=== PATIENT | male | born 1940 | race Caucasian/White ===

== ENCOUNTER 2021-04-01 15:47 | Inpatient (IN) | payer MEDICARE ==
[~2021-04-01] VITALS: Ht 175.3 cm; Wt 66.4 kg
[2021-04-01] MEDS ORDERED: ASPI-1450 PO (16:08)
[2021-04-01 16:45] LABS: BASOPHILS % (AUTO) 0.5 % (0.0-2.0); EOSINOPHILS % (AUTO) 0.9 % (1.0-6.0); HEMATOCRIT 40.8 % (41-53); HEMOGLOBIN 13.8 g/dL (13.5-17.5); LYMPHOCYTES # (AUTO) 1.7 K/uL (1.0-4.8); LYMPHOCYTES % (AUTO) 28.6 % (22.0-44.0); MEAN CORPUSCULAR HEMOGLOBIN 30.4 pg (26.0-34.0); MEAN CORPUSCULAR HGB CONC 33.7 G/dL (31.0-37.0); MEAN CORPUSCULAR VOLUME 90 fL (80-100); MONOCYTES # (AUTO) 0.5 K/uL (0.1-1.0); MONOCYTES % (AUTO) 8.8 % (2.0-9.0); NEUTROPHILS # (AUTO) 3.6 K/uL (1.8-7.7); NEUTROPHILS % (AUTO) 61.2 % (40.0-70.0); PLATELET COUNT (AUTO) 159 K/uL (150-450); RED BLOOD CELL COUNT(AUTO) 4.53 MIL/uL (4.50-5.90); RED CELL DISTRIBUTION WIDTH 13.5 % (11.5-14.5)
[2021-04-01 16:55] LABS: ANION GAP 7 mmol/L (8-16); CALCIUM, TOTAL 8.8 mg/dL (8.8-10.5); CARBON DIOXIDE 23 mmol/L (22-29); CHLORIDE 106 mmol/L (98-107); CREATININE 0.88 mg/dL (0.60-1.30); GLUCOSE,RANDOM 90 mg/dL (70-110); POTASSIUM 3.4 mmol/L (3.5-5.1); SODIUM SERUM 136 mmol/L (136-145); UREA NITROGEN, BLOOD 16 mg/dL (7-18)
[2021-04-01 16:57] LABS: GLOMERULAR FILTR. RATE CALC > 60 mL/min (>60)
[2021-04-01 17:01] LABS: ALANINE AMINOTRANSFERASE 23 U/L (12-78); ALBUMIN 3.6 g/dL (3.4-5.0); ALKALINE PHOSPHATASE 65 U/L (46-116); ASPARTATE AMINOTRANSFERASE 16 U/L (15-37); BILIRUBIN,TOTAL 0.5 mg/dL (0.1-1.0); TOTAL PROTEIN, SERUM 6.6 g/dL (6.4-8.2)
[2021-04-01] MEDS ORDERED: 0.9% SODIUM CHLORIDE 10 ML SYRINGE IVP PRN (19:45)
[2021-04-01] MEDS ORDERED: ACETAMINOPHEN 325 MG TABLET PO PRN ×2 (19:45→22:15)
[2021-04-01] MEDS ORDERED: ASPIRIN 325 MG TABLET PO ONE (19:45)
[2021-04-01] MEDS ORDERED: ONDANSETRON HCL 4 MG/2 ML VIAL IVP PRN ×2 (19:45→22:15)
[2021-04-01] MEDS ORDERED: MORPHINE SULFATE 2 MG/ML SYRINGE IVP PRN ×2 (19:45→22:15)
[2021-04-01] MEDS ORDERED: ZOLPIDEM TARTRATE 5 MG TABLET PO PRN (22:15)
[2021-04-01] MEDS ORDERED: HYDROCODONE/ACETAMINOPHEN 5-325 MG TABLET PO PRN (22:15)
[2021-04-01] MEDS ORDERED: MAGNESIUM HYDROXIDE SUSPENSION 30 ML UDCUP PO PRN (22:15)
[2021-04-01] MEDS ORDERED: BISACODYL 10 MG RECTAL RECTAL SUPPOSITORY PR PRN (22:15)
[2021-04-01 22:31] LABS: COVID AG,FIA SOURCE NASOPHARYNGEAL
[2021-04-02 00:17] VITALS: BP 135/74
[2021-04-02] MEDS ORDERED: PNEUMOCOCCAL VACCINE POLYVALENT 0.5 ML VIAL [PPSV23] IM. ONE (01:00)
[2021-04-02 04:33] VITALS: BP 148/73
[2021-04-02 06:17] LABS: BASOPHILS % (AUTO) 0.4 % (0.0-2.0); EOSINOPHILS % (AUTO) 1.7 % (1.0-6.0); HEMATOCRIT 40.2 % (41-53); HEMOGLOBIN 13.8 g/dL (13.5-17.5); LYMPHOCYTES # (AUTO) 1.7 K/uL (1.0-4.8); LYMPHOCYTES % (AUTO) 29.6 % (22.0-44.0); MEAN CORPUSCULAR HEMOGLOBIN 30.7 pg (26.0-34.0); MEAN CORPUSCULAR HGB CONC 34.2 G/dL (31.0-37.0); MEAN CORPUSCULAR VOLUME 90 fL (80-100); MONOCYTES # (AUTO) 0.5 K/uL (0.1-1.0); MONOCYTES % (AUTO) 9.2 % (2.0-9.0); NEUTROPHILS # (AUTO) 3.5 K/uL (1.8-7.7); NEUTROPHILS % (AUTO) 59.1 % (40.0-70.0); PLATELET COUNT (AUTO) 153 K/uL (150-450); RED BLOOD CELL COUNT(AUTO) 4.48 MIL/uL (4.50-5.90); RED CELL DISTRIBUTION WIDTH 13.4 % (11.5-14.5)
[2021-04-02 06:47] LABS: ALANINE AMINOTRANSFERASE 23 U/L (12-78); ALBUMIN 3.5 g/dL (3.4-5.0); ALKALINE PHOSPHATASE 63 U/L (46-116); ANION GAP 10 mmol/L (8-16); ASPARTATE AMINOTRANSFERASE 17 U/L (15-37); BILIRUBIN,TOTAL 0.6 mg/dL (0.1-1.0); CALCIUM, TOTAL 8.5 mg/dL (8.8-10.5); CARBON DIOXIDE 23 mmol/L (22-29); CHLORIDE 104 mmol/L (98-107); CHOL/HDL RATIO 4.2 (4.2-7.3); CHOLESTEROL 193 mg/dL (131-200); GLUCOSE,RANDOM 89 mg/dL (70-110); HDL CHOLESTEROL 46 mg/dL (40-60); LDL CHOL (CALC.) 127 mg/dL (0-130); POTASSIUM 3.5 mmol/L (3.5-5.1); SODIUM SERUM 137 mmol/L (136-145); THYROID STIMULATING HORMONE 7.12 uIU/mL (0.36-3.74); TOTAL PROTEIN, SERUM 6.5 g/dL (6.4-8.2); TRIGLYCERIDES 100 mg/dL (15-150); UREA NITROGEN, BLOOD 14 mg/dL (7-18)
[2021-04-02 06:52] LABS: GLOMERULAR FILTR. RATE CALC > 60 mL/min (>60)
[2021-04-02 08:01] VITALS: BP 134/73
[2021-04-02] MEDS: DOCUSATE SODIUM 100 MG CAPSULE PO SCH ×2 (08:03→20:47)
[2021-04-02] MEDS: PANTOPRAZOLE SODIUM 40 MG DR TABLET PO SCH (08:03)
[2021-04-02] MEDS: HEPARIN SODIUM,PORCINE 5,000 UNITS/ML VIAL SQ SCH ×4 (08:03→23:24)
[2021-04-02] MEDS: ASPIRIN 81 MG CHEWABLE TABLET PO SCH (08:03)
[2021-04-02] MEDS ORDERED: LORazepam 2 MG/ML VIAL IVP ONE (10:00)
[2021-04-02 11:45] VITALS: BP 121/73
[2021-04-02] MEDS ORDERED: LORazepam 0.5 MG TABLET PO PRN (12:00)
[2021-04-02 16:12] VITALS: BP 139/72
[2021-04-02] MEDS ORDERED: LORazepam 0.5 MG TABLET PO ONE (16:15)
[2021-04-02] MEDS ORDERED: LORazepam 1 MG TABLET PO PRN (16:15)
[2021-04-02 19:28] VITALS: BP 132/81
[2021-04-02] MEDS: ATORVASTATIN CALCIUM 10 MG TABLET PO SCH (20:47)
[2021-04-03 00:02] VITALS: BP 155/91
[2021-04-03 03:59] VITALS: BP 144/97
[2021-04-03 06:58] LABS: BASOPHILS % (AUTO) 0.2 % (0.0-2.0); EOSINOPHILS % (AUTO) 0.2 % (1.0-6.0); HEMATOCRIT 42.7 % (41-53); HEMOGLOBIN 14.4 g/dL (13.5-17.5); LYMPHOCYTES # (AUTO) 0.7 K/uL (1.0-4.8); LYMPHOCYTES % (AUTO) 7.7 % (22.0-44.0); MEAN CORPUSCULAR HEMOGLOBIN 30.5 pg (26.0-34.0); MEAN CORPUSCULAR HGB CONC 33.6 G/dL (31.0-37.0); MEAN CORPUSCULAR VOLUME 91 fL (80-100); MONOCYTES # (AUTO) 0.4 K/uL (0.1-1.0); MONOCYTES % (AUTO) 4.4 % (2.0-9.0); NEUTROPHILS # (AUTO) 8.1 K/uL (1.8-7.7); PLATELET COUNT (AUTO) 171 K/uL (150-450); RED BLOOD CELL COUNT(AUTO) 4.72 MIL/uL (4.50-5.90); RED CELL DISTRIBUTION WIDTH 13.5 % (11.5-14.5)
[2021-04-03 07:00] LABS: NEUTROPHILS % (AUTO) 87.5 % (40.0-70.0)
[2021-04-03 07:01] LABS: ANION GAP 12 mmol/L (8-16); CALCIUM, TOTAL 9.3 mg/dL (8.8-10.5); CARBON DIOXIDE 22 mmol/L (22-29); CHLORIDE 106 mmol/L (98-107); CREATININE 0.85 mg/dL (0.60-1.30); GLUCOSE,RANDOM 122 mg/dL (70-110); POTASSIUM 3.7 mmol/L (3.5-5.1); SODIUM SERUM 140 mmol/L (136-145); UREA NITROGEN, BLOOD 14 mg/dL (7-18)
[2021-04-03 07:02] LABS: GLOMERULAR FILTR. RATE CALC > 60 mL/min (>60)
[2021-04-03 07:19] VITALS: BP 142/94
[2021-04-03] MEDS: HEPARIN SODIUM,PORCINE 5,000 UNITS/ML VIAL SQ SCH ×4 (08:00→23:42)
[2021-04-03] MEDS: ASPIRIN 81 MG CHEWABLE TABLET PO SCH ×2 (08:09→08:25)
[2021-04-03] MEDS: PANTOPRAZOLE SODIUM 40 MG DR TABLET PO SCH ×2 (08:09→08:25)
[2021-04-03] MEDS: DOCUSATE SODIUM 100 MG CAPSULE PO SCH ×3 (08:09→20:33)
[2021-04-03 12:01] VITALS: BP 155/75
[2021-04-03] MEDS ORDERED: LORazepam 2 MG/ML VIAL IVP ONE (12:15)
[2021-04-03 13:49] LABS: APPEARANCE,URINE CLEAR (CLEAR); BILIRUBIN,URINE NEGATIVE (NEGATIVE); GLUCOSE, URINE (UA) NEGATIVE (NEGATIVE); KETONES,URINE 40 mg/dL (NEGATIVE); LEUKOCYTE ESTERASE ,URINE NEGATIVE (NEGATIVE); NITRATE,URINE NEGATIVE (NEGATIVE); OCCULT BLOOD,URINE TRACE (NEGATIVE); PROTEIN,URINE NEGATIVE (NEGATIVE); UROBILINOGEN,URINE 0.2 mg/dL (<=1.0)
[2021-04-03 13:58] LABS: BACTERIA,URINE None Seen /HPF (None Seen); RBC,URINE None Seen /HPF (0-2); SQUAMOUS EPITHELIAL CELL,UR None Seen /LPF (None Seen); WBC,URINE None Seen /HPF (0-5)
[2021-04-03 16:30] VITALS: BP 128/88
[2021-04-03 19:30] VITALS: BP 100/54
[2021-04-03] MEDS: ATORVASTATIN CALCIUM 10 MG TABLET PO SCH (20:33)
[2021-04-03] MEDS: TraZODone HCL 50 MG TABLET PO SCH (20:33)
[2021-04-04 00:10] VITALS: BP 132/64
[2021-04-04 04:00] VITALS: BP 149/77
[2021-04-04 06:18] LABS: BASOPHILS % (AUTO) 0.3 % (0.0-2.0); EOSINOPHILS % (AUTO) 0.2 % (1.0-6.0); HEMATOCRIT 42.9 % (41-53); HEMOGLOBIN 14.5 g/dL (13.5-17.5); LYMPHOCYTES # (AUTO) 1.4 K/uL (1.0-4.8); LYMPHOCYTES % (AUTO) 13.2 % (22.0-44.0); MEAN CORPUSCULAR HEMOGLOBIN 30.4 pg (26.0-34.0); MEAN CORPUSCULAR HGB CONC 33.7 G/dL (31.0-37.0); MEAN CORPUSCULAR VOLUME 90 fL (80-100); MONOCYTES # (AUTO) 0.9 K/uL (0.1-1.0); MONOCYTES % (AUTO) 8.7 % (2.0-9.0); NEUTROPHILS # (AUTO) 8.2 K/uL (1.8-7.7); NEUTROPHILS % (AUTO) 77.6 % (40.0-70.0); PLATELET COUNT (AUTO) 167 K/uL (150-450); RED BLOOD CELL COUNT(AUTO) 4.77 MIL/uL (4.50-5.90); RED CELL DISTRIBUTION WIDTH 13.6 % (11.5-14.5)
[2021-04-04 06:32] LABS: ANION GAP 11 mmol/L (8-16); CALCIUM, TOTAL 8.8 mg/dL (8.8-10.5); CARBON DIOXIDE 24 mmol/L (22-29); CHLORIDE 106 mmol/L (98-107); CREATININE 0.93 mg/dL (0.60-1.30); GLUCOSE,RANDOM 102 mg/dL (70-110); POTASSIUM 3.5 mmol/L (3.5-5.1); SODIUM SERUM 141 mmol/L (136-145); UREA NITROGEN, BLOOD 18 mg/dL (7-18)
[2021-04-04 06:36] LABS: GLOMERULAR FILTR. RATE CALC > 60 mL/min (>60)
[2021-04-04 08:12] VITALS: BP 148/64
[2021-04-04] MEDS: HEPARIN SODIUM,PORCINE 5,000 UNITS/ML VIAL SQ SCH (08:35)
[2021-04-04] MEDS: DOCUSATE SODIUM 100 MG CAPSULE PO SCH (09:00)
[2021-04-04] MEDS: TraZODone HCL 50 MG TABLET PO SCH (09:00)
[2021-04-04] MEDS: PANTOPRAZOLE SODIUM 40 MG DR TABLET PO SCH (09:00)
[2021-04-04] MEDS: ASPIRIN 81 MG CHEWABLE TABLET PO SCH (09:00)
[2021-04-04] MEDS ORDERED: ATOR10TA84 PO (10:50)
[2021-04-04] MEDS ORDERED: TRAZ-252 PO (10:50)
[2021-04-04 11:01] VITALS: BP 150/90
== END 2021-04-04 11:45 | disposition home or self-care (01) | DRG 69 ==
LOC: EMS 15:47 → 5S 18:46
PROVIDERS: ADMIT Internal Medicine; ATTEND Internal Medicine
DX: G45.9 Transient cerebral ischemic attack, unspecified (principal); E44.0 Moderate protein-calorie malnutrition; I48.20 Chronic atrial fibrillation, unspecified; E87.6 Hypokalemia; F02.80 Dementia in other diseases classified elsewhere, unspecified severity, without behavioral disturbance, psychotic disturbance, mood disturbance, and anxiety; G30.9 Alzheimer's disease, unspecified; I10 Essential (primary) hypertension; Z79.82 Long term (current) use of aspirin; Z79.899 Other long term (current) drug therapy; Z86.73 Personal history of transient ischemic attack (TIA), and cerebral infarction without residual deficits; Z20.822 Contact with and (suspected) exposure to COVID-19; Z68.21 Body mass index [BMI] 21.0-21.9, adult
CPT/HCPCS: 70450; 71045; 80048; 80053; 80061; 81001; 84443; 84484; 85025; 93005; 97112; 97116; 97162; 97530; 99291; J1644; J2060; 36415-L1; 36415-TC